=== PATIENT | male | born 1980 | race Asian ===

== ENCOUNTER 2022-09-08 15:58 | Inpatient (IN) | payer BC ==
[~2022-09-08] VITALS: Ht 185.4 cm; Wt 71.7 kg
[2022-09-08] MEDS ORDERED: SODIUM CHLORIDE 0.9% 1,000 ML IV ONE (17:00)
[2022-09-08 17:03] LABS: BASOPHILS % 1.2 % (0.0-2.0); EOSINOPHILS % 4.6 % (0.0-5.0); HEMATOCRIT. 38.2 % (42.0-52.0); HEMOGLOBIN. 12.8 g/dL (14.0-18.0); LYMPHOCYTES % 26.5 % (20.0-50.0); MEAN CORPUSCULAR HEMOGLOBIN 27.1 pg (28.0-32.0); MEAN CORPUSCULAR VOLUME 80.9 fL (80.0-94.0); MEAN PLATELET VOLUME 6.7 fl (7.4-10.4); MONOCYTES % 7.8 % (2.0-8.0); NEUTROPHILS % 59.9 % (40.0-76.0); PLATELET 645 x1000/uL (130-400); RED BLOOD CELL COUNT 4.72 mill/uL (4.7-6.1); RED CELL DISTRIBUTION WIDTH 13.7 % (11.6-14.6)
[2022-09-08 17:14] LABS: CHLORIDE 100 mEq/L (98-107)
[2022-09-08] MEDS ORDERED: SODIUM CHLORIDE 0.9% 1000ML BAG (SEPSIS BOLUS) IV ONE (19:00)
[2022-09-08] MEDS ORDERED: OSELTAMIVIR 75MG CAPSULE PO ONE (19:00)
[2022-09-08] MEDS ORDERED: LEVOFLOXACIN 750MG PREMIX 150 ML IV ONE (19:00)
[2022-09-08 20:44] LABS: CLARITY URINE CLEAR (CLEAR); COLOR URINE YELLOW (YELLOW); KETONES URINE NEGATIVE (NEGATIVE); LEUKOCYTE ESTERASE URINE NEGATIVE (NEGATIVE); NITRITE URINE NEGATIVE (NEGATIVE); OCCULT BLOOD URINE NEGATIVE (NEGATIVE); PH URINE 6.5 (4.5-8.0); PROTEIN URINE NEGATIVE (NEGATIVE)
[2022-09-08] MEDS ORDERED: GUAIFENESIN 200MG/10ML SUGAR FREE UDC PO PRN (22:00)
[2022-09-08] MEDS ORDERED: MAGNESIUM/ALUMINUM HYDROXIDE/SIMETHICONE 30ML UDC PO PRN (22:00)
[2022-09-08] MEDS ORDERED: ZOLPIDEM TARTRATE 5MG TABLET PO PRN (22:00)
[2022-09-08] MEDS ORDERED: IPRATROPIUM/ALBUTEROL 0.5-3(2.5)MG/3ML NEB HHN PRN (22:00)
[2022-09-08] MEDS ORDERED: DIPHENHYDRAMINE 50MG/ML VIAL IV PRN (22:00)
[2022-09-08] MEDS ORDERED: ACETAMINOPHEN 325MG TABLET PO PRN ×2 (22:00)
[2022-09-08] MEDS ORDERED: ONDANSETRON HCL 4MG/2ML INJ IV PRN (22:00)
[2022-09-08 22:14] VITALS: BP 121/75
[2022-09-08 22:44] VITALS: BP 121/75
[2022-09-08] MEDS: SODIUM CHLORIDE 0.9% INJ 3ML FLUSH IVF SCH (23:56)
[2022-09-09] VITALS: BP 116/75
[2022-09-09 02:15] LABS: HEPATITIS B SURFACE ANTIGEN NEGATIVE
[2022-09-09 04:00] VITALS: BP 120/76
[2022-09-09] MEDS: SODIUM CHLORIDE 0.9% INJ 3ML FLUSH IVF SCH ×3 (06:52→21:04)
[2022-09-09 08:16] VITALS: BP 115/69
[2022-09-09 11:53] VITALS: BP 114/63
[2022-09-09] MEDS: PANTOPRAZOLE SODIUM 40 MG/VIAL IV SCH (14:50)
[2022-09-09 16:03] VITALS: BP 106/76
[2022-09-09] MEDS ORDERED: AZITHROMYCIN 500MG in DEXTROSE 5% WATER 250ML IV SCH (17:00)
[2022-09-09 20:00] VITALS: BP 110/65
[2022-09-09] MEDS ORDERED: LEVOFLOXACIN 500MG PREMIX 100 ML IV SCH (21:00)
[2022-09-09] MEDS ORDERED: IPRATROPIUM BROMIDE (0.02%) 0.5MG/2.5ML NEB HHN PRN (23:45)
[2022-09-09] MEDS ORDERED: ALBUTEROL (0.083%) 2.5MG/3ML NEB HHN PRN (23:45)
[2022-09-10] VITALS: BP 112/71
[2022-09-10 04:00] VITALS: BP 111/75
[2022-09-10] MEDS: SODIUM CHLORIDE 0.9% INJ 3ML FLUSH IVF SCH ×3 (05:29→22:06)
[2022-09-10 08:00] VITALS: BP 99/68
[2022-09-10] MEDS ORDERED: AZITHROMYCIN 500MG/250ML 250 ML IV SCH (09:00)
[2022-09-10] MEDS: CEFTRIAXONE 1GM PREMIX 50 ML IV SCH (09:49)
[2022-09-10] MEDS: PANTOPRAZOLE SODIUM 40 MG/VIAL IV SCH (09:49)
[2022-09-10 12:00] VITALS: BP 94/59
[2022-09-10 14:08] LABS: HIV 1 ABS Reactive (Non Reactive); HIV 2 ABS Non Reactive (Non Reactive); HIV SCREEN 4G Preliminary Reactive (Non Reactive); INTERPRETATION HIV-1 Positive (.)
[2022-09-10 16:00] VITALS: BP 93/57
[2022-09-10 20:00] VITALS: BP 107/68
[2022-09-10] MEDS: SULFAMETHOXAZOLE/TRIMETHOPRIM 800/160MG TABLET PO SCH (22:03)
[2022-09-11] VITALS: BP_SYST 111; BP_SYST 112; BP_SYST 120; BP_DIAS 65; BP_DIAS 71; BP_DIAS 79
[2022-09-11 04:00] VITALS: BP 100/64
[2022-09-11] MEDS: SULFAMETHOXAZOLE/TRIMETHOPRIM 800/160MG TABLET PO SCH ×3 (06:36→21:02)
[2022-09-11] MEDS: SODIUM CHLORIDE 0.9% INJ 3ML FLUSH IVF SCH ×3 (06:39→21:03)
[2022-09-11 08:00] VITALS: BP_SYST 96; BP_SYST 98; BP_DIAS 63; BP_DIAS 65; BP_DIAS 70
[2022-09-11] MEDS: FAMOTIDINE 20MG TABLET PO SCH ×2 (09:40→21:02)
[2022-09-11 12:00] VITALS: BP 105/70
[2022-09-11] MEDS: CEFTRIAXONE 1GM PREMIX 50 ML IV SCH (12:49)
[2022-09-11 13:06] LABS: QFT MITOGEN VALUE >10.00 IU/mL (.); QFT TB GOLD PLUS Negative (Negative); QFT TB1 AG VALUE 0.35 IU/mL (.)
[2022-09-11 16:00] VITALS: BP 106/74
[2022-09-11 20:00] VITALS: BP_SYST 102; BP_DIAS 69; BP_DIAS 70; BP_DIAS 72
[2022-09-12] VITALS: BP 104/66
[2022-09-12] MEDS: SULFAMETHOXAZOLE/TRIMETHOPRIM 800/160MG TABLET PO SCH ×3 (05:25→21:25)
[2022-09-12] MEDS: SODIUM CHLORIDE 0.9% INJ 3ML FLUSH IVF SCH ×3 (05:25→21:25)
[2022-09-12 08:22] VITALS: BP 99/69
[2022-09-12] MEDS: CEFTRIAXONE 1GM PREMIX 50 ML IV SCH (08:24)
[2022-09-12] MEDS: FAMOTIDINE 20MG TABLET PO SCH ×2 (08:24→21:25)
[2022-09-12] MEDS ORDERED: IPRATROPIUM/ALBUTEROL 0.5-3(2.5)MG/3ML NEB HHN PRN (12:45)
[2022-09-12 13:06] VITALS: BP 105/75
[2022-09-12 17:00] VITALS: BP 101/66
[2022-09-12] MEDS: AZITHROMYCIN 250 MG TABLET PO SCH (17:22)
[2022-09-12 20:00] VITALS: BP_SYST 107; BP_SYST 96; BP_SYST 99; BP_DIAS 63; BP_DIAS 64; BP_DIAS 66
[2022-09-13] VITALS: BP 102/66
[2022-09-13] MEDS: SODIUM CHLORIDE 0.9% INJ 3ML FLUSH IVF SCH ×3 (05:31→20:48)
[2022-09-13] MEDS: SULFAMETHOXAZOLE/TRIMETHOPRIM 800/160MG TABLET PO SCH ×3 (05:31→20:48)
[2022-09-13 05:55] LABS: BASOPHILS % 0.7 % (0.0-2.0); EOSINOPHILS % 6.8 % (0.0-5.0); HEMATOCRIT. 39.6 % (42.0-52.0); HEMOGLOBIN. 13.1 g/dL (14.0-18.0); MEAN CORPUSCULAR HEMOGLOBIN 26.7 pg (28.0-32.0); MEAN CORPUSCULAR VOLUME 80.4 fL (80.0-94.0); MEAN PLATELET VOLUME 7.2 fl (7.4-10.4); MONOCYTES % 11.9 % (2.0-8.0); NEUTROPHILS % 53.6 % (40.0-76.0); PLATELET 538 x1000/uL (130-400); RED BLOOD CELL COUNT 4.93 mill/uL (4.7-6.1); RED CELL DISTRIBUTION WIDTH 13.8 % (11.6-14.6)
[2022-09-13 07:59] LABS: CHLORIDE 102 mEq/L (98-107)
[2022-09-13 08:00] VITALS: BP 103/69
[2022-09-13] MEDS: FAMOTIDINE 20MG TABLET PO SCH ×2 (08:46→20:48)
[2022-09-13] MEDS: AZITHROMYCIN 250 MG TABLET PO SCH (08:46)
[2022-09-13 09:07] LABS: % CD 3 POS. LYMPHOCYTES 89.8 % (57.5-86.2); % CD 4 POS. LYMPHOCYTES 2.8 % (30.8-58.5); % CD 8 POS. LYMPH 85.7 % (12.0-35.5); ABSOLUTE BASOPHILS 0.1 x10E3/uL (0.0-0.2); ABSOLUTE CD 3 1706 /uL (622-2402); ABSOLUTE CD 4 HELPER 53 /uL (359-1519); ABSOLUTE CD 8 SUPPRESSOR 1628 /uL (109-897); ABSOLUTE EOSINOPHILS 0.6 x10E3/uL (0.0-0.4); ABSOLUTE LYMPHOCYTES 1.9 x10E3/uL (0.7-3.1); ABSOLUTE MONOCYTES 0.6 x10E3/uL (0.1-0.9); ABSOLUTE NEUTROPHILS 4.1 x10E3/uL (1.4-7.0); BASOPHILS 1 % (Not Estab.); CD4/CD8 RATIO 0.03 (0.92-3.72); HEMATOCRIT 39.2 % (37.5-51.0); HEMOGLOBIN 13.1 g/dL (13.0-17.7); IMMATURE GRANULOCYTES 1 % (Not Estab.); IMMATURE GRANULOCYTES ABSOLUTE 0.1 x10E3/uL (0.0-0.1); LYMPHOCYTES 26 % (Not Estab.); MEAN CORPUSCULAR HEMOGLOBIN 26.8 pg (26.6-33.0); MEAN CORPUSCULAR HGB CONC. 33.4 g/dL (31.5-35.7); MEAN CORPUSCULAR VOLUME 80 fL (79-97); MONOCYTES 9 % (Not Estab.); NEUTROPHILS 55 % (Not Estab.); PLATELETS 537 x10E3/uL (150-450); RBC 4.89 x10E6/uL (4.14-5.80); RED CELL DISTRIBUTION WIDTH 12.8 % (11.6-15.4); WBC 7.3 x10E3/uL (3.4-10.8)
[2022-09-13 09:07] LABS: ANGIOTENSION CONVERTING ENZYME 37 U/L (14-82)
[2022-09-13] MEDS: CEFTRIAXONE 1GM PREMIX 50 ML IV SCH (09:49)
[2022-09-13 12:00] VITALS: BP 105/68
[2022-09-13 16:00] VITALS: BP_SYST 105; BP_SYST 107; BP_SYST 99; BP_DIAS 65; BP_DIAS 71
[2022-09-13 19:58] VITALS: BP 99/65
[2022-09-13 20:00] VITALS: BP 106/73
[2022-09-14 15:11] LABS: ANTI-NUCLEAR ANTIBODIES DIRECT Negative (Negative)
== END 2022-09-13 22:17 | disposition home or self-care (01) | DRG 974 ==
LOC: ER 15:58 → EDBEDREQ 20:39 → EDBEDREQTM 20:39 → ENRESERV 21:38 → 3WST 22:59 → 7EST 09-09 23:53
PROVIDERS: ADMIT Internal Medicine; ATTEND Internal Medicine
DX: J18.9 Pneumonia, unspecified organism (principal); E43 Unspecified severe protein-calorie malnutrition; B20 Human immunodeficiency virus [HIV] disease; J96.00 Acute respiratory failure, unspecified whether with hypoxia or hypercapnia; E87.1 Hypo-osmolality and hyponatremia; G90.8 Other disorders of autonomic nervous system; Z20.822 Contact with and (suspected) exposure to COVID-19; J32.9 Chronic sinusitis, unspecified; D64.9 Anemia, unspecified; Z88.0 Allergy status to penicillin; Z68.20 Body mass index [BMI] 20.0-20.9, adult
CPT/HCPCS: 36415; 70551; 71045; 72070; 72100; 80048; 80053; 81003; 82164; 83605; 83615; 83880; 84145; 84443; 84484; 85025; 85651; 86038; 86359; 86360; 86480; 86635; 86698; 86701; 86702; 86803; 87070; 87116; 87340; 87389; 87426; 87804; 87899; 93005; 99285; C9113; C9803; J0456; J0696; J1956; J7030; J7060